=== PATIENT | female | born 1995 | race Caucasian/White ===

== ENCOUNTER 2017-06-15 05:51 | Day surgery (SDC) | payer OTHER ==
--- NOTE | 2017-06-14 08:24 | PDGENHP ---
History and Physical - Chief Complaint Left Hip Pain - History of Present Illness 1. Left~Hip Dyplasia with resultant labral tear 2. S/P Left hip arthroscopy(2009) 3. S/P Revision Left hip arthroscopy including labral reconstruction and derotational osteotomy (2012) 4. Right~Femoroacetabular impingement (KENYATTA) Cam type, with~resultant labral tear 5. Early JSN HISTORY OF PRESENT ILLNESS: Debis a 22 y.o.~~~active female~who I have had the pleasure to consult on today.~I have enjoyed meeting her. She~lives in [place]. 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 ~She~is ; she~ has no~children. ~Debenjoys running, working out and weight lifting but she is not active now. Latanya's recent left~hip pain started in after she started working out vigorously and she has been having hip pain since 2009. ~She has the history of hip arthroscopy and derotational osteotomy by us in 2012 and she did well until this October,. ~Debhas~a known history of hip dysplasia. Latanya is also reporting right hip pain but its not bothering enough seek any intervention. Presentation today is of~anterior, lateral, groin bilateral~hip pain (L>R). ~ The hip does~wake her~at night and does~click and catch on her. Sitting can be uncomfortable~for her. Debdoes not~report suffering from lower back pain episodes. Debhas~participated in physical therapy and has~tried other conservative measures including hip injections . She has had US guided left hip injection in April, and it gave 100% relief for a day. ~She~has not~received sufficient symptomatic improvement. Latanya~has~utilized medication for pain management, including Tramadol. Deb has used medication for 3 weeks. Debunderstands that she~has a hip and pelvis problem which should be researched and wishes to get a better understanding of her~hip status, followed by an establishment of a treatment strategy, hoping she~would be able to get back to her~well being active life. History: Past medical history: ~ None which is relevant Relevant familial history: Mom has had hip arthroscopy recently. Past surgical history: No. Surgery Anesthesia Year Outcome 1 Left Hip Arthroscopy [place] 2009 2 Revision left hip arthroscopy/DFO [place] 2013 3 Left Knee Arthroscopy [place] 2016 Good Latanya~describes problematic issues with general anesthesia which includes itching. I have reviewed, verified and agree with the past medical, surgical, family and social history. Current Medications:~has a current medication list which includes the following prescription(s): tramadol hcl, buspirone, cyclobenzaprine, hydrocortisone, sertraline, and sertraline. ALLERGIES:~is allergic to sulfa (sulfonamide antibiotics). Objective: Physical Examination: Debis 5~feet 8~inches tall and weighs~150~Lbs. Debis AAO x3; she~is well- nourished, in NAD. Skin is warm and dry. ~Breathing is non-labored. ~CV with RRR by pulse. Abdomen is soft, NTND. Currently, she~walks with a normal~gait. Trendelenburg sign is negative~and proprioception~is normal, both~sides. She~presents~with moderate~signs of joint laxity.~Beightons Score: 5 She~is fit looking. ~~ Lower spine examination is negative~for sciatic or femoral nerve irritation with negative~SLR &~femoral stretch tests. Range of motion of the spine is normal~for flexion, extension, and rotations, with no~associated pain. Strength, Sensation and pulses are normal - bilaterally Ankles and knees exams are normal~and no~mal-alignment is evident. She~has~no leg length discrepancy. Thigh circumference is symmetric~with no evidence for muscle atrophy~on both~ sides. Surgical scars on the left. Hip ROM (degrees): FL ER At 90~hip FL IR At 90~hip FL AB AD EX IR Neutral hip ER Neutral hip R 110 50 10-15 45 10 15 45 40 L 115 50 10 45 10 15 25 25 Specific hip and pelvis tests: Quadrant JOHANNE Roll Add. Longus R +++ Negative Negative Negative L +++ +++ Negative Negative Glut. Med ITB R Negative 5/5 strength Negative 5/5 strength L Negative 5/5 strength Negative 5/5 strength Squeeze test measured normal Bony Symphysis pubis is pain free~to touch while concentric activity of the rectus abdominis, does not~produce pain at its insertion. Ilio Psos specific tests are negative for pain during cycling for both hips~and remarkable for non painful snap HF has no pain on ~both hips. Anterior~capsule tenderness on both sides(L>R). Greater trochanteric burse is painful~on the left hip. Piriformis tests: FAIR is negative, with no~local signs of neuritis related to sciatic nerve. SIJs examination is normal~with normal~JOHANNE in relation and local tenderness. Hamstrings tests are negative~functional contraction and negative~tendinopathy both hips. On a daily basis, the following percentages reflect Latanya's overall total pain: Deep hip: 100% Imaging: Radiology studies which I~have personally reviewed, analyzed and measured are below: XR: AP of the hip and pelvis: Performed in a good~technique Coccyx to pubic symphysis distance 1~cm. 17~degrees cephalad.~ [place]~Lines are preserved. Minimal~Pathological signs are seen in the Symphysis Pubis. No~Pathological signs are seen at the Ischial~tuberosity. Healed left femoral osteotomy with nail in situ. ~~ Specific measurements show: NSA~ LCE Sourcil~Angle Sharp's angle Lat. Cam Lat. Pincer C.Over~sign Head~Coverage % ATDmm R N 30 5 40 + - - N N L N 21 13 45 - - - 72 N Pos. wall sign ISS NAD ~~Dysplasia Comments R Negative Negative 20~mm + L Negative Negative 18~mm +++ Sclerosis Sup. Lat. OA Cysts Joint Space-WBZ Joint Space-Medial R Negative Negative Negative 5~mm 4.1~mm L + Negative Negative 4.3~mm 3.7~mm X Table lateral: Anterior cam lesion is seen~on the right hip. Alpha Angle: ~ Right 72~degrees Left 49~degrees (S/P cam resection) Impression and plan: Debis a 22 y.o.~active female~suffering from symptomatic bilateral~hip pain due to ~Left~Hip Dyplasia with resultant labral tear, S/P Left hip arthroscopy( 2009), S/P Revision Left hip arthroscopy including labral reconstruction and derotational femoral~osteotomy (2012)~and Right~Femoroacetabular impingement ( KENYATTA) Cam type, with~resultant labral tear~causing significant disability to her~ and altering~her~sport and life activities. Physical examination, imaging, and her~story correspond with the diagnosis mentioned above. Latanya has had revision left hip arthroscopy with derotational femoral osteotomy in 2012 and it helped her until this October,. It seems like her dysplasia started to play up on her and she needs a periacetabular osteotomy to address her instability on the left. At this point she would want to wait on her right side as the symptoms are tolerable. I reviewed the technical aspects of hip arthroscopy including risks, benefits, and expected course of recovery. Latanya~understands that hip arthroscopy is a minimally invasive outpatient procedure carried out through small incisions on the outer aspect of the hip joint. During surgery, the labral tear will be identified and either repaired or reconstructed~using bone anchors and suture material. Additionally, any excessive bone will be removed with a high-speed vincent to reshape the hip joint and restore normal anatomy. Risks include infection, bleeding, injury to nearby nerves or vessels, stiffness, persistent pain, instability, venous thromboembolic disease, and traction related complications including temporary foot numbness. Rarely, revision surgery may be required to address these problems. Overall recovery takes approximately 4~~ 8~months depending on the extent of damage and degree of repair. In the event that the labral tissue quality is inadequate for successful repair and healing, Latanya~understands that a labral reconstruction will be performed. This procedure entails placing a cadaver tissue graft within the hip joint and stabilizing it with bone anchors to build a new labrum. The overall recovery time for labral reconstruction is similar to that of labral repair, although the surgical procedure takes longer to perform. I reviewed the technical aspects of periacetabular osteotomy (JORDAN) including risks, benefits, and expected course of recovery. Latanya~understands that JORDAN is an inpatient procedure carried out through two medium sized incisions on the front and back of the hip joint. The hip socket is cut, realigned, and stabilized with 2 ~3 internal screws. Risks include infection, bleeding, injury to nearby nerves or vessels, stiffness, persistent pain, instability, failure of bony healing, implant related complications, and venous thromboembolic disease. Rarely, revision surgery may be required to address these problems. Risks, potential complications, side effects and recovery from surgical procedure were discussed in length. We explained how this surgery is an open procedure, and though patients tend to do well in the long-term, it involves significant pain in the first 2-4 weeks post-op and a rather lengthy rehab.~Overall recovery takes approximately 6 ~12~months depending on the extent of damage and degree of repair. Debunderstands that she~will undergo hip arthroscopy 1 week prior to the JORDAN to address damage inside the hip joint. Debunderstands that hip arthroscopy and JORDAN are two separate procedures that are best performed one week apart, with the arthroscopy commencing first to "tighten up" any pathology evident in the hip joint (labral repair, etc.) and the JORDAN open procedure occurring 7-10 days later to realign the acetabulum.~ Debwill review the info presented. In order to better evaluate the soft tissues and cartilage of the hip joint, I will order an MRI scan. Debwill talk with our surgical technologist about possible surgery dates. Debis happy with this plan. I have also supplied her~with a handout~with details of our contact info's and our web site details. I wish~Deball the best, ~~ Samantha Terrell MD History Information - Allergies/Home Medication List Allergies/Adverse Reactions: Sulfa (Sulfonamide Antibiotics) Allergy (Intermediate, Verified 06/12/17 11:45) Rash Home Medications: Sertraline HCl [Zoloft 25mg (*)] 25 mg PO HS 06/11/17 [Last Taken Unknown] busPIRone [Buspar (*)] 15 mg PO HS 06/11/17 [Last Taken Unknown] I have personally reviewed and updated: medical history - Social History Smoking Status: Never smoked
[2017-06-15] MEDS ORDERED: PREGABALIN 150 MG CAP PO ONE (05:59)
[2017-06-15] MEDS ORDERED: ACETAMINOPHEN 500 MG TAB PO ONE (05:59)
[2017-06-15] MEDS ORDERED: ceFAZolin 2 GM/DEXTROSE 100 ML IV ONE (05:59)
[2017-06-15] MEDS ORDERED: LR 1,000 ML IV ONE (06:00)
[2017-06-15] MEDS ORDERED: LIDOCAINE 1% 2 ML INJ ID PRN (06:00)
[2017-06-15] MEDS ORDERED: BUPIVACAINE/EPI 0.25% 30 ML SDV ONE ×2 (06:54→07:04)
[2017-06-15] MEDS ORDERED: MIDAZOLAM 2 MG/2 ML VIAL IVP ONE (06:57)
--- NOTE | 2017-06-15 06:57 | PDANEPAE ---
ANE History of Present Illness Hip dysplasia labral tear ANE Past Medical History - Cardiovascular History Hx Hypertension: No Hx Arrhythmias: No Hx Chest Pain: No Hx Coronary Artery / Peripheral Vascular Disease: No Hx CHF / Valvular Disease: No Hx Palpitations: No - Pulmonary History Hx COPD: No Hx Asthma/Reactive Airway Disease: No Hx Recent Upper Respiratory Infection: No Hx Oxygen in Use at Home: No Hx Sleep Apnea: No Sleep Apnea Screening Result - Last Documented: Negative - Neurologic History Hx Cerebrovascular Accident: No Hx Seizures: No Hx Dementia: No - Endocrine History Hx Diabetes: No - Renal History Hx Renal Disorders: Yes Renal History Comment: recent uti - Liver History Hx Hepatic Disorders: No - Neurological & Psychiatric Hx Hx Neurological and Psychiatric Disorders: Yes Neurological / Psychiatric History Comment: bipolar depression - Cancer History Hx Cancer: No - Congenital Disorder History Hx Congenital Disorders: No - GI History Hx Gastrointestinal Disorders: Yes Gastrointestinal History Comment: celiac disease - Other Health History Other Health History: rash on face from recent sulfa abx that was prescribed for uti - Chronic Pain History Chronic Pain: Yes (left hip) - Surgical History Prior Surgeries: 06/15/17 Left hip scope and labral repair. left osteotomy on femur 2012. left knee scope. left labral repair ANE Review of Systems - Exercise capacity METS (RN): 5 METS ANE Patient History - Allergies Allergies/Adverse Reactions: Sulfa (Sulfonamide Antibiotics) Allergy (Intermediate, Verified 06/12/17 11:45) Rash - Home Medications Home medications: home medication list seen and reviewed Home Medications: Sertraline HCl [Zoloft 25mg (*)] 25 mg PO HS 06/11/17 [Last Taken 06/10/17] busPIRone [Buspar (*)] 15 mg PO HS 06/11/17 [Last Taken 06/10/17] - NPO status NPO Since - Liquids (Date): 06/14/17 NPO Since - Solids (Date): 06/14/17 NPO Since - Solids (Time): 20:00 - Anes Hx Anes Hx: post operative nausea and vomiting - Smoking Hx Smoking Status: Never smoked - Family Anes Hx Family Hx Anesthesia Complications: mother- has a hard time coming out of anesthesia ANE Labs/Vital Signs - Vital Signs Blood Pressure: 116/81 Heart Rate: 65 Respiratory Rate: 16 O2 Sat (%): 96 Height: 172.72 cm Weight: 68.039 kg ANE Physical Exam - Airway Neck exam: FROM Mallampati Score: Class 1 Mouth exam: normal dental/mouth exam - Pulmonary Pulmonary: no respiratory distress - Cardiovascular Cardiovascular: regular rate and rhythym - ASA Status ASA Status: II ANE Anesthesia Plan Anesthesia Plan: general endotracheal anesthesia
[2017-06-15] MEDS ORDERED: REMIFENTANIL HCL 1 MG VIAL ONE (07:03)
[2017-06-15] MEDS ORDERED: PROPOFOL/EMULSION 500 MG/50 ML BOTTLE IV ONE (07:04)
[2017-06-15] MEDS ORDERED: PROPOFOL 200 MG/20 ML VIAL ONE (07:04)
[2017-06-15] MEDS ORDERED: fentaNYL 100 MCG/2 ML INJ ONE ×4 (07:04→11:06)
[2017-06-15] MEDS ORDERED: MIDAZOLAM 2 MG/2 ML VIAL ONE (07:09)
[2017-06-15] MEDS ORDERED: ROCURONIUM 50 MG/5 ML VIAL ONE (07:16)
[2017-06-15] MEDS ORDERED: LIDOCAINE 2% 5 ML SDV ONE (07:16)
[2017-06-15] MEDS ORDERED: SUGAMMADEX SODIUM 200 MG/2 ML VIAL IVP ONE (07:16)
[2017-06-15] MEDS ORDERED: DEXAMETHASONE 4 MG/ML VIAL ONE (07:16)
[2017-06-15] MEDS ORDERED: ONDANSETRON 4 MG/2 ML VIAL ONE (07:16)
[2017-06-15] MEDS ORDERED: epHEDrine SULFATE 10 MG/ML SYR ONE (08:21)
[2017-06-15] MEDS ORDERED: NEOSTIGMINE METHYLSULFATE 5 MG/5 ML SYR ONE (09:03)
[2017-06-15] MEDS ORDERED: GLYCOPYRROLATE 0.2 MG/1 ML VIAL ONE ×3 (09:03)
[2017-06-15] MEDS ORDERED: NALOXONE HCL 0.4 MG/ML INJ IVP PRN (09:12)
[2017-06-15] MEDS ORDERED: ONDANSETRON 4 MG/2 ML VIAL IVP PRN (09:12)
[2017-06-15] MEDS ORDERED: PROMETHAZINE HCL 25 MG/ML INJ IVP PRN (09:12)
[2017-06-15] MEDS: fentaNYL 100 MCG/2 ML INJ IVP PRN ×2 (09:37→11:09)
[2017-06-15] MEDS ORDERED: HYDROmorphONE/DILAUDID 1 MG/ML SYR ONE (09:37)
[2017-06-15] MEDS: HYDROmorphONE/DILAUDID 1 MG/ML SYR IVP PRN ×2 (09:40→10:00)
--- NOTE | 2017-06-15 09:40 | POSTANESTH ---
Post Anesthetic Evaluation Cardiovascular Status: Normal, Stable Respiratory Status: Normal, Stable Level of Consciousness/Mental Status: Can Participate in Eval Pain Control: Adequate, Prn Tx Ordered Nausea/Vomiting Control: Adequate, Prn Tx Ordered Complications Possibly Related to Anesthesia: None Noted
[2017-06-15 09:49] VITALS: TEMP 97.3
[2017-06-15 10:38] VITALS: BP 111/75; PULSE 68; RESP 18; O2SAT 97
== END 2017-06-15 11:53 | disposition home or self-care (01) ==
LOC: FSGY 05:51
PROVIDERS: ATTEND Orthopaedic Surgery Sports Medicine
PROC: 0SBB4ZZ Excision of Left Hip Joint, Percutaneous Endoscopic Approach (ICD-10-PCS; principal; 2017-06-15 07:15)
PROC: 0SQB4ZZ Repair Left Hip Joint, Percutaneous Endoscopic Approach (ICD-10-PCS; principal; 2017-06-15 07:15)
DX: S73.192A Other sprain of left hip, initial encounter (principal); Q65.89 Other specified congenital deformities of hip
CPT/HCPCS: 29916; 76001; C1769; C1713; J0171; J0690; J1100; J1170; J2250; J2405; J2704; J2710; J3010

== ENCOUNTER 2017-06-18 07:15 | Inpatient (IN) | payer OTHER ==
--- NOTE | 2017-06-14 08:27 | PDGENHP ---
History and Physical - Chief Complaint LEFT HIP PAIN - History of Present Illness 1. Left~Hip Dyplasia with resultant labral tear 2. S/P Left hip arthroscopy(2009) 3. S/P Revision Left hip arthroscopy including labral reconstruction and derotational osteotomy (2012) 4. Right~Femoroacetabular impingement (KENYATTA) Cam type, with~resultant labral tear 5. Early JSN HISTORY OF PRESENT ILLNESS: Debis a 22 y.o.~~~active female~who I have had the pleasure to consult on today.~I have enjoyed meeting her. She~lives in [place]. 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 ~She~is ; she~ has no~children. ~Debenjoys running, working out and weight lifting but she is not active now. Latanya's recent left~hip pain started in after she started working out vigorously and she has been having hip pain since 2009. ~She has the history of hip arthroscopy and derotational osteotomy by us in 2012 and she did well until this October,. ~Debhas~a known history of hip dysplasia. Latanya is also reporting right hip pain but its not bothering enough seek any intervention. Presentation today is of~anterior, lateral, groin bilateral~hip pain (L>R). ~ The hip does~wake her~at night and does~click and catch on her. Sitting can be uncomfortable~for her. Debdoes not~report suffering from lower back pain episodes. Debhas~participated in physical therapy and has~tried other conservative measures including hip injections . She has had US guided left hip injection in April, and it gave 100% relief for a day. ~She~has not~received sufficient symptomatic improvement. Latanya~has~utilized medication for pain management, including Tramadol. Deb has used medication for 3 weeks. Debunderstands that she~has a hip and pelvis problem which should be researched and wishes to get a better understanding of her~hip status, followed by an establishment of a treatment strategy, hoping she~would be able to get back to her~well being active life. History: Past medical history: ~ None which is relevant Relevant familial history: Mom has had hip arthroscopy recently. Past surgical history: No. Surgery Anesthesia Year Outcome 1 Left Hip Arthroscopy [place] 2009 2 Revision left hip arthroscopy/DFO [place] 2013 3 Left Knee Arthroscopy [place] 2016 Good Latanya~describes problematic issues with general anesthesia which includes itching. I have reviewed, verified and agree with the past medical, surgical, family and social history. Current Medications:~has a current medication list which includes the following prescription(s): tramadol hcl, buspirone, cyclobenzaprine, hydrocortisone, sertraline, and sertraline. ALLERGIES:~is allergic to sulfa (sulfonamide antibiotics). Objective: Physical Examination: Debis 5~feet 8~inches tall and weighs~150~Lbs. Debis AAO x3; she~is well- nourished, in NAD. Skin is warm and dry. ~Breathing is non-labored. ~CV with RRR by pulse. Abdomen is soft, NTND. Currently, she~walks with a normal~gait. Trendelenburg sign is negative~and proprioception~is normal, both~sides. She~presents~with moderate~signs of joint laxity.~Beightons Score: 5 She~is fit looking. ~~ Lower spine examination is negative~for sciatic or femoral nerve irritation with negative~SLR &~femoral stretch tests. Range of motion of the spine is normal~for flexion, extension, and rotations, with no~associated pain. Strength, Sensation and pulses are normal - bilaterally Ankles and knees exams are normal~and no~mal-alignment is evident. She~has~no leg length discrepancy. Thigh circumference is symmetric~with no evidence for muscle atrophy~on both~ sides. Surgical scars on the left. Hip ROM (degrees): FL ER At 90~hip FL IR At 90~hip FL AB AD EX IR Neutral hip ER Neutral hip R 110 50 10-15 45 10 15 45 40 L 115 50 10 45 10 15 25 25 Specific hip and pelvis tests: Quadrant JOHANNE Roll Add. Longus R +++ Negative Negative Negative L +++ +++ Negative Negative Glut. Med ITB R Negative 5/5 strength Negative 5/5 strength L Negative 5/5 strength Negative 5/5 strength Squeeze test measured normal Bony Symphysis pubis is pain free~to touch while concentric activity of the rectus abdominis, does not~produce pain at its insertion. Ilio Psos specific tests are negative for pain during cycling for both hips~and remarkable for non painful snap HF has no pain on ~both hips. Anterior~capsule tenderness on both sides(L>R). Greater trochanteric burse is painful~on the left hip. Piriformis tests: FAIR is negative, with no~local signs of neuritis related to sciatic nerve. SIJs examination is normal~with normal~JOHANNE in relation and local tenderness. Hamstrings tests are negative~functional contraction and negative~tendinopathy both hips. On a daily basis, the following percentages reflect Latanya's overall total pain: Deep hip: 100% Imaging: Radiology studies which I~have personally reviewed, analyzed and measured are below: XR: AP of the hip and pelvis: Performed in a good~technique Coccyx to pubic symphysis distance 1~cm. 17~degrees cephalad.~ [place]~Lines are preserved. Minimal~Pathological signs are seen in the Symphysis Pubis. No~Pathological signs are seen at the Ischial~tuberosity. Healed left femoral osteotomy with nail in situ. ~~ Specific measurements show: NSA~ LCE Sourcil~Angle Sharp's angle Lat. Cam Lat. Pincer C.Over~sign Head~Coverage % ATDmm R N 30 5 40 + - - N N L N 21 13 45 - - - 72 N Pos. wall sign ISS NAD ~~Dysplasia Comments R Negative Negative 20~mm + L Negative Negative 18~mm +++ Sclerosis Sup. Lat. OA Cysts Joint Space-WBZ Joint Space-Medial R Negative Negative Negative 5~mm 4.1~mm L + Negative Negative 4.3~mm 3.7~mm X Table lateral: Anterior cam lesion is seen~on the right hip. Alpha Angle: ~ Right 72~degrees Left 49~degrees (S/P cam resection) Impression and plan: Debis a 22 y.o.~active female~suffering from symptomatic bilateral~hip pain due to ~Left~Hip Dyplasia with resultant labral tear, S/P Left hip arthroscopy( 2009), S/P Revision Left hip arthroscopy including labral reconstruction and derotational femoral~osteotomy (2012)~and Right~Femoroacetabular impingement ( KENYATTA) Cam type, with~resultant labral tear~causing significant disability to her~ and altering~her~sport and life activities. Physical examination, imaging, and her~story correspond with the diagnosis mentioned above. Latanya has had revision left hip arthroscopy with derotational femoral osteotomy in 2012 and it helped her until this October,. It seems like her dysplasia started to play up on her and she needs a periacetabular osteotomy to address her instability on the left. At this point she would want to wait on her right side as the symptoms are tolerable. I reviewed the technical aspects of hip arthroscopy including risks, benefits, and expected course of recovery. Latanya~understands that hip arthroscopy is a minimally invasive outpatient procedure carried out through small incisions on the outer aspect of the hip joint. During surgery, the labral tear will be identified and either repaired or reconstructed~using bone anchors and suture material. Additionally, any excessive bone will be removed with a high-speed vincent to reshape the hip joint and restore normal anatomy. Risks include infection, bleeding, injury to nearby nerves or vessels, stiffness, persistent pain, instability, venous thromboembolic disease, and traction related complications including temporary foot numbness. Rarely, revision surgery may be required to address these problems. Overall recovery takes approximately 4~~ 8~months depending on the extent of damage and degree of repair. In the event that the labral tissue quality is inadequate for successful repair and healing, Latanya~understands that a labral reconstruction will be performed. This procedure entails placing a cadaver tissue graft within the hip joint and stabilizing it with bone anchors to build a new labrum. The overall recovery time for labral reconstruction is similar to that of labral repair, although the surgical procedure takes longer to perform. I reviewed the technical aspects of periacetabular osteotomy (JORDAN) including risks, benefits, and expected course of recovery. Latanya~understands that JORDAN is an inpatient procedure carried out through two medium sized incisions on the front and back of the hip joint. The hip socket is cut, realigned, and stabilized with 2 ~3 internal screws. Risks include infection, bleeding, injury to nearby nerves or vessels, stiffness, persistent pain, instability, failure of bony healing, implant related complications, and venous thromboembolic disease. Rarely, revision surgery may be required to address these problems. Risks, potential complications, side effects and recovery from surgical procedure were discussed in length. We explained how this surgery is an open procedure, and though patients tend to do well in the long-term, it involves significant pain in the first 2-4 weeks post-op and a rather lengthy rehab.~Overall recovery takes approximately 6 ~12~months depending on the extent of damage and degree of repair. Debunderstands that she~will undergo hip arthroscopy 1 week prior to the JORDAN to address damage inside the hip joint. Debunderstands that hip arthroscopy and JORDAN are two separate procedures that are best performed one week apart, with the arthroscopy commencing first to "tighten up" any pathology evident in the hip joint (labral repair, etc.) and the JORDAN open procedure occurring 7-10 days later to realign the acetabulum.~ Debwill review the info presented. In order to better evaluate the soft tissues and cartilage of the hip joint, I will order an MRI scan. Debwill talk with our ophthalmic surgical assistant about possible surgery dates. Debis happy with this plan. I have also supplied her~with a handout~with details of our contact info's and our web site details. I wish~Deball the best, ~~ Samantha Terrell MD History Information - Allergies/Home Medication List Allergies/Adverse Reactions: Sulfa (Sulfonamide Antibiotics) Allergy (Intermediate, Verified 06/12/17 11:45) Rash Home Medications: Sertraline HCl [Zoloft 25mg (*)] 25 mg PO HS 06/11/17 [Last Taken Unknown] busPIRone [Buspar (*)] 15 mg PO HS 06/11/17 [Last Taken Unknown] I have personally reviewed and updated: medical history - Social History Smoking Status: Never smoked
[~2017-06-18 07:15] MED LIST: TRANEXAMIC ACID 1,000 MG in NS 100 ML IV ONE
[2017-06-18] MEDS ORDERED: CITRATE DEXTROSE SOLN 500 ML BAG ONE (07:38)
[2017-06-18] MEDS ORDERED: TRANEXAMIC ACID 1,000 MG in NS 100 ML IV ONE (11:00)
[2017-06-18] MEDS ORDERED: ceFAZolin 2 GM/DEXTROSE 100 ML IV ONE (11:05)
[2017-06-18] MEDS ORDERED: SCOPOLAMINE HYDROBROMIDE 1.5 MG PATCH TD ONE (11:05)
[2017-06-18] MEDS ORDERED: ACETAMINOPHEN 500 MG TAB PO ONE (11:05)
[2017-06-18] MEDS ORDERED: PREGABALIN 150 MG CAP PO ONE (11:05)
[2017-06-18] MEDS ORDERED: LIDOCAINE 1% 2 ML INJ ONE (11:14)
[2017-06-18] MEDS ORDERED: LR 1,000 ML IV ONE (11:29)
[2017-06-18] MEDS ORDERED: *INFUSION*TRANEX ACID 1,000 MG/NS 100 ML IV ONE (11:30)
[2017-06-18] MEDS ORDERED: MIDAZOLAM 2 MG/2 ML VIAL ONE (12:29)
[2017-06-18] MEDS ORDERED: fentaNYL 100 MCG/2 ML INJ ONE ×3 (12:46→18:08)
[2017-06-18] MEDS ORDERED: ONDANSETRON 4 MG/2 ML VIAL ONE (12:47)
[2017-06-18] MEDS ORDERED: METOCLOPRAMIDE 10 MG/2 ML VIAL ONE (12:47)
[2017-06-18] MEDS ORDERED: PROPOFOL 200 MG/20 ML VIAL ONE (12:47)
--- NOTE | 2017-06-18 13:47 | PDANEPAE ---
ANE Past Medical History - Cardiovascular History Hx Hypertension: No Hx Arrhythmias: No Hx Chest Pain: No Hx Coronary Artery / Peripheral Vascular Disease: No Hx CHF / Valvular Disease: No Hx Palpitations: No - Pulmonary History Hx COPD: No Hx Asthma/Reactive Airway Disease: No Hx Recent Upper Respiratory Infection: No Hx Oxygen in Use at Home: No Hx Sleep Apnea: No Sleep Apnea Screening Result - Last Documented: Negative - Neurologic History Hx Cerebrovascular Accident: No Hx Seizures: No Hx Dementia: No - Endocrine History Hx Diabetes: No - Renal History Hx Renal Disorders: Yes Renal History Comment: recent uti - Liver History Hx Hepatic Disorders: No - Neurological & Psychiatric Hx Hx Neurological and Psychiatric Disorders: Yes Neurological / Psychiatric History Comment: bipolar depression - Cancer History Hx Cancer: No - Congenital Disorder History Hx Congenital Disorders: No - GI History Hx Gastrointestinal Disorders: Yes Gastrointestinal History Comment: celiac disease - Other Health History Other Health History: rash on face from recent sulfa abx that was prescribed for uti - Chronic Pain History Chronic Pain: Yes (left hip) - Surgical History Prior Surgeries: 06/15/17 Left hip scope and labral repair. left osteotomy on femur 2012. left knee scope. left labral repair ANE Review of Systems - Exercise capacity METS (RN): 5 METS ANE Patient History - Allergies Allergies/Adverse Reactions: Sulfa (Sulfonamide Antibiotics) Allergy (Intermediate, Verified 06/12/17 11:45) Rash - Home Medications Home Medications: Sertraline HCl [Zoloft 25mg (*)] 25 mg PO HS 06/11/17 [Last Taken 06/10/17] busPIRone [Buspar (*)] 15 mg PO HS 06/11/17 [Last Taken 06/10/17] - NPO status NPO Since - Liquids (Date): 06/17/17 NPO Since - Liquids (Time): 20:30 NPO Since - Solids (Date): 06/17/17 NPO Since - Solids (Time): 20:30 - Smoking Hx Smoking Status: Never smoked - Family Anes Hx Family Hx Anesthesia Complications: mother- has a hard time coming out of anesthesia ANE Labs/Vital Signs - Vital Signs Blood Pressure: 121/79 Heart Rate: 81 Respiratory Rate: 16 O2 Sat (%): 96 Height: 172.72 cm Weight: 68.039 kg ANE Physical Exam - Airway Mallampati Score: Class 1 - ASA Status ASA Status: II ANE Anesthesia Plan Anesthesia Plan: GA w LMA, epidural
[2017-06-18] MEDS ORDERED: NS EP SCH (14:42)
[2017-06-18] MEDS ORDERED: FENTANYL EP SCH (14:42)
[2017-06-18] MEDS ORDERED: NARCOTIC DRIP BAG-TOTAL ALL TYPES EP PRN (14:42)
[2017-06-18] MEDS ORDERED: ONDANSETRON 4 MG/2 ML VIAL IVP PRN ×2 (14:42→17:25)
[2017-06-18] MEDS ORDERED: NALOXONE HCL 0.4 MG/ML INJ IVP PRN (14:42)
[2017-06-18] MEDS ORDERED: fentaNYL 2MCG/ML/BUP 0.1% RTU 100 ML EP SCH (14:50)
[2017-06-18] MEDS ORDERED: LACTULOSE 20 GM/30 ML UDCUP PO PRN (17:25)
[2017-06-18] MEDS ORDERED: MAGNESIUM HYDROXIDE 30 ML UDCUP PO PRN (17:25)
[2017-06-18] MEDS ORDERED: BISACODYL 10 MG SUPP PR PRN (17:25)
--- NOTE | 2017-06-18 17:41 | SUROPNOTE ---
SELINA Operative Report - Surgery Surgery was performed in [facility] 06/18/17 Diagnosis: Left 1. Hip Acetabular Dysplasia Operation: Left~Rosemary Acetabular Osteotomy (JORDAN) Surgeon: Vivek Wilkerson MD Child Advocate:~~Juan Manuel FISH Anesthetic: General + epidural Procedure: General anesthetic. Antibiotics given. Cell saver in use. Fluoroscopy. Phase 1: Position lateral, diagonal skin incision between ischial tuberosity and greater trochanter as for posterior hip approach. Blunt split of glut max fibers. Identification of fat pad overlying sciatic nerve. Exposure of sciatic nerve under fat pad, gently retracting it away-medially to ischial tuberosity. Exposure of subcotoloid fossa proximal to short rotators. Using osteotomes and under fluoroscopy, osteotomy of subcotoloid fossa to sciatic notch proximal to ischial spine. Closure of lateral cut. Patient is turned supine. Phase 2: Skin incision just distal to ASIS. Using diathermy the iliac spine was exposed and inguinal ligament + Sartorious were retracted medially, taking the LFCN with them, protecting it. Inner ilium was dissected from iliacus muscle bluntly , with a cob and swab. Dissection continued towards lateral superior ramus pubis. Using fluoroscopy an osteotomy of lateral superior ramus, just medial to tear drop, was performed with curved fish mouth osteotome. Phase 3: Osteotomy lines of the ilium were marked with diathermy as pre planned according to XR/CT and expected correction of acatabulum. 2 Shanz screws were drilled into central acetabular fragment, corresponding with planned correction angles, in order to mobilize central acetabular fragment after osteotomy is complete. ~Iliac osteotomy was performed with reciprocating saw and the main acetabular fragment was moved to realign weight bearing position. After confirmation of correction using fluoroscopy in AP and false profile planes, the fragment was fixed with 2 - 5.5mm ~full threaded~screws~and 1 - 4mm~~full threaded~screw. Inguinal ligament and Sartorious were attached back to ASIS through drill holes. Incision was closed according to soft tissue layers. Skin was closed with subdermal Monocryl. Final fluoro shots were obtained to confirm position/correction. After surgery Latanya~moved both lower limbs and had no NV motor compromise. Evaluation under anesthesia: IR at 90 degrees hip flexion prior to JORDAN was 25~degrees and after JORDAN was 10-15 ~degrees. Bleedin~cc into cell-saver, 300~of blood products were returned to patient. Post op instructions: 1. Partial~weight bearing crutches for 6 weeks (50%) 2. Epidural analgesia for 24-48 hours 3. Continuous SCD 4. Aspirin 81 mg X1 day once Epidural is discontinued 5. Avoid hip flexion past 90 and hip External rotation. 6. PT according to my recommendations at follow up visit Kind regards, Dr. Vivek Wilkerson
[2017-06-18] MEDS ORDERED: LR 500 ML IV PRN (17:52)
[2017-06-18] MEDS ORDERED: PROMETHAZINE HCL 25 MG/ML INJ IVP PRN (17:52)
[2017-06-18] MEDS: fentaNYL 100 MCG/2 ML INJ IVP PRN ×2 (18:07→18:28)
[2017-06-18] MEDS: DIAZEPAM 2 MG TAB PO PRN (20:02)
[2017-06-18] MEDS: ACETAMINOPHEN 325 MG TAB PO PRN (20:02)
[2017-06-18] MEDS: busPIRone 15 MG TAB PO SCH (22:01)
[2017-06-18] MEDS: SERTRALINE HCL 25 MG TAB PO SCH (22:01)
[2017-06-18] MEDS: SENNOSIDES/DOCUSATE SODIUM TAB PO SCH (22:01)
[2017-06-19] MEDS: fentaNYL 2MCG/ML/BUP 0.1% RTU 100 ML EP SCH ×4 (00:13→22:53)
[2017-06-19] MEDS: ACETAMINOPHEN 325 MG TAB PO PRN ×3 (01:19→19:57)
[2017-06-19 05:08] LABS: HEMATOCRIT 30.5 % (38.0-47.0); HEMOGLOBIN 9.8 g/dL (12.6-16.3); MEAN CELL HEMOGLOBIN 27.9 pg (27.9-34.1); MEAN CELL HEMOGLOBIN CONCENTR. 32.1 g/dL (32.4-36.7); MEAN CELL VOLUME 86.9 fL (81.5-99.8); RED BLOOD CELL COUNT 3.51 10^6/uL (4.18-5.33)
[2017-06-19 05:31] LABS: ANION GAP 5 mEq/L (8-16); CALCIUM 8.3 mg/dL (8.5-10.4); CARBON DIOXIDE 26 mEq/l (22-31); CHLORIDE 104 mEq/L (97-110); GLOMERULAR FILTRATION RATE > 60; GLUCOSE 86 mg/dL (70-100); POTASSIUM 4.1 mEq/L (3.5-5.2); SODIUM 135 mEq/L (134-144)
[2017-06-19] MEDS: SENNOSIDES/DOCUSATE SODIUM TAB PO SCH ×2 (08:24→23:08)
--- NOTE | 2017-06-19 09:25 | SOAPPROG ---
SOAP Progress Note Assessment/Plan: Assessment: Doing well Plan:[facility]andrapr[facility] katz care. 06/19/17 09:25 Subjective: joaquin is POD 1 left JORDAN. She has an epidural in place ro assist with pain management. She states she has done well overnight and has good pain relief wih minimal side effects (mild itching only). Objective: Vital Signs Temp Pulse Resp BP Pulse Ox 37.3 C 78 16 98/59 L 96 06/19/17 07:33 06/19/17 07:33 06/19/17 07:33 06/19/17 07:33 06/19/17 07:33 Laboratory Results 06/19/17 04:29 06/19/17 04:29 06/18/17 06/19/17 06/20/17 05:59 05:59 05:59 Intake Total 2700 Output Total 1550 Balance 1150 ICD10 Worksheet Patient Problems: Problems Problem Status Onset Post-op pain Acute - ICD10 Problem Qualifiers (1) Post-op pain
[2017-06-19] MEDS: diphenhydrAMINE 25 MG CAP PO PRN ×2 (10:27→19:57)
[2017-06-19] MEDS: DC NARCS MISC SCH (10:27)
[2017-06-19] MEDS: REGARDING ANTICOAG MISC SCH (10:28)
[2017-06-19] MEDS: DIAZEPAM 2 MG TAB PO PRN ×2 (11:34→19:57)
[2017-06-19] MEDS ORDERED: CANN-EASE 2 GM TUBE TP ONE (15:55)
--- NOTE | 2017-06-19 22:18 | SOAPPROG ---
SOAP Progress Note Assessment/Plan: Assessment: 1 day post op Left Periacetabular Osteotomy Plan: Pulmonary toilet: temps are likely atelectasis but will monitor. D/C epidural tomorrow and transition to PO analgesics Ybarra out after epidural Up with PT/OT PRN Pelvis Xray 06/19/17 22:13 06/19/17 22:19 Subjective: Latanya was not pain controlled after leaving PACU and it was discovered that epidural was not hooked up properly; once fixed she did well with analgesia. Today she is well pain controlled; itching from opioids. No nausea, cp or sob. She's had fluctuating temperatures throughout the day. Objective: Vital Signs Temp Pulse Resp BP Pulse Ox 38.8 C H 110 H 16 111/65 98 06/19/17 20:00 06/19/17 20:00 06/19/17 20:00 06/19/17 20:00 06/19/17 20:00 Laboratory Results 06/19/17 04:29 06/19/17 04:29 06/18/17 06/19/17 06/20/17 05:59 05:59 05:59 Intake Total 2700 1000 Output Total 1550 2400 Balance 1150 -1400 Well appearing in NAD Left Hip: dressings clean dry intact some edema NVI distally Full ROM of foot and ankle - Pending Discharge Pending Discharge Within 48 Hours: Yes Pending Discharge Date: 06/21/17 Pending Discharge Time: 11:00 ICD10 Worksheet Patient Problems: Problems Problem Status Onset Post-op pain Acute
[2017-06-19] MEDS: busPIRone 15 MG TAB PO SCH (23:08)
[2017-06-19] MEDS: SERTRALINE HCL 25 MG TAB PO SCH (23:08)
[2017-06-20] MEDS: DIAZEPAM 2 MG TAB PO PRN ×4 (02:17→21:30)
[2017-06-20] MEDS: fentaNYL 2MCG/ML/BUP 0.1% RTU 100 ML EP SCH (06:25)
[2017-06-20] MEDS: REGARDING ANTICOAG MISC SCH (07:43)
[2017-06-20] MEDS: DC NARCS MISC SCH (07:43)
[2017-06-20] MEDS: ACETAMINOPHEN 325 MG TAB PO PRN (08:41)
[2017-06-20] MEDS: SENNOSIDES/DOCUSATE SODIUM TAB PO SCH ×2 (08:41→21:30)
[2017-06-20] MEDS: oxyCODONE IR 5 MG TAB PO SCH ×4 (10:23→21:30)
[2017-06-20] MEDS: HYDROmorphONE/DILAUDID 1 MG/ML SYR IVP PRN ×2 (13:06→19:44)
[2017-06-20] MEDS ORDERED: oxyCODONE IR 15 MG TAB PO SCH (14:00)
--- NOTE | 2017-06-20 15:46 | SOAPPROG ---
SOAP Progress Note Assessment/Plan: Assessment: Doing well Plan:Contuan cuurent care. 06/19/17 09:25 06/20/17 15:44 Transition to po pain meds. Epidural dicontinued, catheter removed, tip intact. No further anesthesia follow up indicated at this time. Objective: Vital Signs Temp Pulse Resp BP Pulse Ox 36.9 C 89 16 110/67 95 06/20/17 15:32 06/20/17 15:32 06/20/17 15:32 06/20/17 15:32 06/20/17 15:32 Laboratory Results 06/19/17 04:29 06/19/17 04:29 06/19/17 06/20/17 06/21/17 05:59 05:59 05:59 Intake Total 2700 1300 Output Total 1550 4050 150 Balance 1150 -2750 -150 ICD10 Worksheet Patient Problems: Problems Problem Status Onset Post-op pain Acute - ICD10 Problem Qualifiers (1) Post-op pain
[2017-06-20] MEDS: ASPIRIN EC 81 MG TAB PO SCH (18:06)
[2017-06-20] MEDS: SERTRALINE HCL 25 MG TAB PO SCH (21:30)
[2017-06-20] MEDS: busPIRone 15 MG TAB PO SCH (21:30)
[2017-06-20] MEDS: diphenhydrAMINE 25 MG CAP PO PRN (22:11)
--- NOTE | 2017-06-21 00:21 | SOAPPROG ---
SOAP Progress Note Assessment/Plan: Assessment: Plan: 06/21/17 00:20 Saw Latanya Wed night, POD 2. Epi out, folly still in, pain is controlled but she is not very comfortable. NV intact, dressing clean dry. SCD on. Passed gas. Will monitor Dr Wilkerson Objective: Vital Signs Temp Pulse Resp BP Pulse Ox 37.1 C 85 18 118/62 96 06/20/17 23:37 06/20/17 23:37 06/20/17 23:37 06/20/17 23:37 06/20/17 23:37 Laboratory Results 06/19/17 04:29 06/19/17 04:29 06/19/17 06/20/17 06/21/17 05:59 05:59 05:59 Intake Total 2700 1300 Output Total 1550 4050 1100 Balance 1150 -2750 -1100 ICD10 Worksheet Patient Problems: Problems Problem Status Onset Post-op pain Acute
[2017-06-21] MEDS: oxyCODONE IR 5 MG TAB PO SCH ×6 (02:02→22:34)
[2017-06-21] MEDS: HYDROmorphONE/DILAUDID 1 MG/ML SYR IVP PRN (03:03)
[2017-06-21] MEDS: DIAZEPAM 2 MG TAB PO PRN (07:37)
[2017-06-21] MEDS: SENNOSIDES/DOCUSATE SODIUM TAB PO SCH ×2 (09:14→20:43)
[2017-06-21] MEDS: ASPIRIN EC 81 MG TAB PO SCH (09:14)
[2017-06-21] MEDS: ONDANSETRON DISINTEGRATING 4 MG TAB PO PRN ×2 (10:24→20:43)
[2017-06-21] MEDS: DC NARCS MISC SCH (10:40)
[2017-06-21] MEDS: REGARDING ANTICOAG MISC SCH (10:40)
--- NOTE | 2017-06-21 10:55 | SOAPPROG ---
SOAP Progress Note Assessment/Plan: Assessment: 3rd day post op Left Periacetabular Osteotomy Plan: oral and IVP analgesics Up with PT/OT PRN Pelvis Xray today home in next day or two 06/19/17 22:13 06/19/17 22:19 06/21/17 10:52 Subjective: Latanya is doing well this morning. Her pain is managed with Oxycodone, she's had intermittent nausea, hasn't been out of bed much but now that Ybarra is out that will change. Objective: Vital Signs Temp Pulse Resp BP Pulse Ox 36.9 C 86 14 99/59 L 95 06/21/17 07:09 06/21/17 07:09 06/21/17 07:09 06/21/17 07:09 06/21/17 07:09 Laboratory Results 06/19/17 04:29 06/19/17 04:29 06/20/17 06/21/17 06/22/17 05:59 05:59 05:59 Intake Total 1300 Output Total 4050 2700 400 Balance -2750 -2700 -400 Well appearing in NAD Left Hip: edema has decreased, no ecchymosis dressings clean dry intact NVI distally Full ROM of foot and ankle - Pending Discharge Pending Discharge Within 48 Hours: Yes Pending Discharge Date: 06/23/17 Pending Discharge Time: 11:00 ICD10 Worksheet Patient Problems: Problems Problem Status Onset Post-op pain Acute
[2017-06-21] MEDS: POLYETHYLENE GLYCOL 3350 17 GM PKT PO PRN (18:05)
[2017-06-21] MEDS: SERTRALINE HCL 25 MG TAB PO SCH (20:43)
[2017-06-21] MEDS: busPIRone 15 MG TAB PO SCH (20:43)
[2017-06-22] MEDS: oxyCODONE IR 5 MG TAB PO SCH ×7 (02:19→22:08)
[2017-06-22 04:13] VITALS: RESP 16
[2017-06-22] MEDS: POLYETHYLENE GLYCOL 3350 17 GM PKT PO PRN (08:34)
[2017-06-22] MEDS: ASPIRIN EC 81 MG TAB PO SCH (08:34)
[2017-06-22] MEDS: SENNOSIDES/DOCUSATE SODIUM TAB PO SCH ×2 (08:34→19:57)
[2017-06-22] MEDS: REGARDING ANTICOAG MISC SCH (08:36)
[2017-06-22] MEDS: DC NARCS MISC SCH (08:37)
--- NOTE | 2017-06-22 11:09 | SOAPPROG ---
SOAP Progress Note Assessment/Plan: Assessment: 4th day post op Left Periacetabular Osteotomy Plan: oral and IVP analgesics Up with PT/OT PRN home later today or tomorrow Fleets Enema; ambulate; hydrate for constipation 06/19/17 22:13 06/19/17 22:19 06/21/17 10:52 06/22/17 11:07 Subjective: Latanya has been fairly constipated. Her pain has been well managed, she denies any nausea, cp or sob. Once she passes stool she'd like to go home. Objective: Vital Signs Temp Pulse Resp BP Pulse Ox 36.8 C 77 16 114/62 96 06/22/17 08:00 06/22/17 08:00 06/22/17 08:00 06/22/17 08:00 06/22/17 08:00 Laboratory Results 06/19/17 04:29 06/19/17 04:29 06/21/17 06/22/17 06/23/17 05:59 05:59 05:59 Intake Total 250 Output Total 2700 400 Balance -2700 -150 Left Hip: some edema dressings clean dry intact NVI distally Full ROM of foot and ankle - Pending Discharge Pending Discharge Within 24 Hours: Yes Pending Discharge Date: 06/23/17 Pending Discharge Time: 11:00 ICD10 Worksheet Patient Problems: Problems Problem Status Onset Post-op pain Acute
[2017-06-22] MEDS: DIAZEPAM 2 MG TAB PO PRN ×2 (16:38→22:08)
[2017-06-22] MEDS: busPIRone 15 MG TAB PO SCH (19:57)
[2017-06-22] MEDS: SERTRALINE HCL 25 MG TAB PO SCH (19:57)
[2017-06-22] MEDS ORDERED: DIAZEPAM 2 MG TAB PO PRN (22:16)
[2017-06-23] MEDS: oxyCODONE IR 5 MG TAB PO SCH ×4 (02:24→13:37)
[2017-06-23] MEDS: POLYETHYLENE GLYCOL 3350 17 GM PKT PO PRN (08:19)
[2017-06-23] MEDS: SENNOSIDES/DOCUSATE SODIUM TAB PO SCH (08:19)
[2017-06-23] MEDS: ASPIRIN EC 81 MG TAB PO SCH (08:20)
[2017-06-23] MEDS: ONDANSETRON DISINTEGRATING 4 MG TAB PO PRN ×2 (08:53→13:36)
[2017-06-23 11:19] VITALS: BP 108/64; PULSE 89; TEMP 98.7; O2SAT 97
== END 2017-06-23 14:08 | disposition home or self-care (01) | DRG 517 ==
LOC: F3N 10:35
PROVIDERS: ADMIT Orthopaedic Surgery Sports Medicine; ATTEND Orthopaedic Surgery Sports Medicine
PROC: BQ111ZZ Fluoroscopy of Left Hip using Low Osmolar Contrast (ICD-10-PCS; 2017-06-18)
PROC: 0Q8 Lower Bones, Division (ICD-10-PCS; principal; 2017-06-18 12:30)
DX: Q65.89 Other specified congenital deformities of hip (principal); M24.152 Other articular cartilage disorders, left hip; M24.151 Other articular cartilage disorders, right hip; Z88.2 Allergy status to sulfonamides
CPT/HCPCS: 97116-GP; 97161-GP; 97165-GO; 97535-GO; C1713; J0690; J1170; J1200; J2250; J2405; J2704; J2765; J3010; J7060